=== PATIENT | female | born 1970 | race Caucasian/White ===

== ENCOUNTER 2017-10-03 13:07 | Day surgery (SDC) | payer OTHER ==
[2017-10-03] MEDS ORDERED: NEOSTIGMINE 3 MG/3 ML SYRINGE (14:25)
[2017-10-03] MEDS ORDERED: MEPERIDINE 100 MG INJ (14:25)
[2017-10-03] MEDS ORDERED: LIDOCAINE 2% (SDV) 5 ML INJ (14:25)
[2017-10-03] MEDS ORDERED: SUCCINYLCHOLINE CHLORIDE 100 MG/5 ML SYG IV (14:25)
[2017-10-03] MEDS ORDERED: GLYCOPYRROLATE 0.4 MG INJ (14:25)
[2017-10-03] MEDS ORDERED: ROCURONIUM 50 MG INJ (14:25)
[2017-10-03] MEDS ORDERED: PROPOFOL 20 ML (14:25)
[2017-10-03] MEDS ORDERED: ONDANSETRON 4 MG INJ (14:30)
[2017-10-03] MEDS ORDERED: METOCLOPRAMIDE 10 MG INJ (14:30)
[2017-10-03] MEDS ORDERED: DEXAMETHASONE 4 MG/ML 1 ML INJ (15:02)
[2017-10-03] MEDS ORDERED: HYDROCODONE/APAP (5/325) TAB PO (15:30)
== END 2017-10-03 16:42 | disposition home or self-care (01) ==
LOC: SDS 13:07
DX: J35.01 Chronic tonsillitis (principal); J03.91 Acute recurrent tonsillitis, unspecified; E66.9 Obesity, unspecified; Z68.29 Body mass index [BMI] 29.0-29.9, adult
CPT/HCPCS: 42826; 88304

== ENCOUNTER 2018-01-16 06:13 | Day surgery (SDC) | payer OTHER ==
[2018-01-16] MEDS ORDERED: MIDAZOLAM 1 MG/ML 2 ML INJ (08:47)
[2018-01-16] MEDS ORDERED: FENTAnyl 50 MCG/ML VIAL (08:47)
== END 2018-01-16 10:44 | disposition home or self-care (01) ==
LOC: GIL 06:13
DX: Z12.11 Encounter for screening for malignant neoplasm of colon (principal); D12.7 Benign neoplasm of rectosigmoid junction
CPT/HCPCS: 45380; 84703; 88305